=== PATIENT | male | born 1970 | race Caucasian/White ===

== ENCOUNTER 2017-02-17 14:11 | Emergency (ER) | payer MEDICAID ==
[~2017-02-17] VITALS: Ht 172.7 cm; Wt 90.8 kg
[2017-02-17 14:20] VITALS: BP 137/90
== END 2017-02-17 15:42 | disposition home or self-care (01) ==
LOC: ED 14:11
DX: H10.12 Acute atopic conjunctivitis, left eye (principal); R03.0 Elevated blood-pressure reading, without diagnosis of hypertension